=== PATIENT | male | born 1980 | race American Indian/Alaskan Native ===

== ENCOUNTER 2021-09-13 09:41 | Inpatient (IN) | payer SELFPAY ==
[2021-09-13 10:36] LABS: Basophils # (Auto) 0.1 K/mm3 (0.0-0.1); Basophils % (Auto) 1.2 % (0.0-1.8); Eosinophils % (Auto) 0.4 % (0.0-4.3); Hematocrit 32.6 % (35.5-45.6); Hemoglobin 10.7 gm/dl (11.8-15.2); Lymphocytes # (Auto) 1.4 K/mm3 (1.2-5.4); Lymphocytes % (Auto) 11.9 % (13.4-35.0); Mean Corpuscular HGB Conc 33 % (32-34); Mean Corpuscular Volume 93 fl (84-94); Monocytes # (Auto) 0.7 K/mm3 (0.0-0.8); Platelet Count 330 K/mm3 (140-440); Red Cell Distribution Width 17.7 % (13.2-15.2)
[2021-09-13 12:19] LABS: Calcium 10.2 mg/dL (8.4-10.2)
[2021-09-13] MEDS ORDERED: ONDANSETRON 4 MG/2 ML INJ IV ONE ×3 (15:09→22:21)
--- NOTE | 2021-09-13 15:38 | XRay Report ---
CHEST 1 VIEW 09/13/2021 3:24 PM INDICATION / CLINICAL INFORMATION: Weakness. COMPARISON: None available. FINDINGS: SUPPORT DEVICES: Right Vas-Cath tip overlies distal SVC HEART / MEDIASTINUM: No significant abnormality. LUNGS / PLEURA: No significant pulmonary or pleural abnormality. No pneumothorax. ADDITIONAL FINDINGS: No significant additional findings. IMPRESSION: 1. No acute findings. Signer Name: Dillon Gerardo MD Signed: 09/13/2021 3:34 PM Workstation Name: [id number]
[2021-09-13 16:08] LABS: INR 0.89 (0.87-1.13)
[2021-09-13 16:37] LABS: Chol/HDL Ratio 2.93 %
[2021-09-13] MEDS ORDERED: HYDROmorphone 1 MG/1 ML INJ IV ONE (16:47)
[2021-09-13] MEDS ORDERED: SODIUM CHLORIDE 0.9% 500 ML 500 ML IV ONE (16:47)
[2021-09-13] MEDS ORDERED: niCARdipine DRIP 40 MG/200 ML BAG IV ONE (17:25)
--- NOTE | 2021-09-13 17:39 | Cat Scan Report ---
CT ABDOMEN AND PELVIS WITH CONTRAST HISTORY: pain. COMPARISON: None. TECHNIQUE: CT images of the abdomen and pelvis were obtained following administration of intravenous contrast. All CT scans at this location are performed using CT dose reduction for ALARA by means of automated exposure control. CONTRAST: 100 ml of intravenous contrast administered. FINDINGS: Lungs/bones: Lung bases are clear Abdomen/pelvis: There is thickening of the esophagus with diffuse fluid in the disc. This. The liver , spleen, adrenal glands, pancreas and gallbladder appear normal. Moderate coronary artery calcificat ion. Calcifications are seen overlying bilateral kidneys majority appear vascular. The appendix appea rs normal. No evidence for obstruction is identified. Small inguinal nodes are seen. Atherosclerotic calcifications seen within the aorta with small periaortic nodes. Questionable areas of thickening wi thin the colon and rectum however there is incomplete distention and lack of oral contrast No hydronephrosis. IMPRESSION: 1. Questionable thickening and regions of the colon with possible thickening within the distal sigmoi d colon and rectum as well. Findings could be secondary to incomplete distention. Evaluation is limit ed without oral contrast. No significant inflammatory changes seen. Clinical correlation and follow-u p as indicated. 2. Marked thickening of the distal esophagus and GE junction. Follow-up upper GI examination and with GI recommended. 3. Calcifications in bilateral kidneys appear vascular. No hydronephrosis. There may be a few nonobst ructing renal calcifications as well. Signer Name: Dillon Gerardo MD Signed: 09/13/2021 5:35 PM Workstation Name: [id number]
--- NOTE | 2021-09-13 17:41 | Cat Scan Report ---
NONENHANCED CT SCAN OF THE HEAD: INDICATION / CLINICAL INFORMATION: 40 years Male; AMS. TECHNIQUE: Routine CT head without contrast. All CT scans at this location are performed using CT dos e reduction for ALARA by means of automated exposure control. COMPARISON: CT scan of the head from 07/10/2015 FINDINGS: BRAIN / INTRACRANIAL CONTENTS: No acute hemorrhage, mass effect, midline shift, hydrocephalus, or acu te, large territorial infarct. No chronic infarct or focal atrophy. Normal brain volume and ventricul ar/sulcal size for age. Lateral ventricles and third ventricle increased slightly since the last CT s can No significant white matter abnormality. CRANIOCERVICAL JUNCTION: No significant abnormality. ORBITS: No significant abnormality of visualized orbits. SINUSES / MASTOIDS: No significant abnormality of the visualized paranasal sinuses or mastoid air alberto ls. ADDITIONAL FINDINGS: None. IMPRESSION: No acute focal parenchymal lesion Signer Name: Nabor Sanderson MD Signed: 09/13/2021 5:36 PM Workstation Name: [id number]
--- NOTE | 2021-09-13 17:56 | History and Physical Report ---
History of Present Illness Chief complaint: Confused History of present illness: 40 YO Male with ESRD on HD(T,R,Sa) last dialyzed on , HTN, DM presents ED for evaluation. Patient is confused and lethargic the time my evaluation and is only able to provide minimal history. Patient reports "I feel sick". Juli ent states that he has experienced nausea, weakness over the past 3 days with persistent symptoms over the same timeframe. EMS was notified and upon arrival the patient was found to be in distress and subsequent transported to [facility] for further care and evaluation of the aforementioned symptoms. The patient was seen and evaluated in the emergency department. All lab and imaging studies reviewed. Patient found to have a blood pressure of 195/102 mmHg which is consistent with hypertensive emergency. Patient blood pressure nonresponsive to initial antihypertensive therapy. Patient separately placed on Cardene drip and admitted to [facility]. Patient also found to have systemic inflammatory response syndrome, hypertensive encephalopathy, fluid overload, end-stage renal disease in need of urgent dialysis. Nephrology team consulted in ED. Patient is confused and lethargic at time my evaluation but has a positive gag reflex and is able to protect his airway without difficulty. Prior mission on 03/25/2015 reviewed. All medication listed at time my evaluation has been reconciled. Past History Past Medical History: ESRD, hypertension Past Surgical History: Other (Dialysis access) Social history: single. denies: smoking, alcohol abuse Family history: hypertension Medications and Allergies Allergies Allergy/AdvReac Type Severity Reaction Status Date / Time No Known Allergies Allergy Verified 07/10/15 11:48 Home Medications Medication Instructions Recorded Confirmed Last Taken Type Pantoprazole [Protonix TAB] 40 mg PO DAILY #30 tablet 03/29/15 05/22/15 Unknown Rx Ondansetron [Zofran Odt] 4 mg PO Q6H #7 tab.rapdis 05/22/15 Unknown Rx traMADoL [Ultram] 50 mg PO Q6HR PRN #10 tablet 05/22/15 Unknown Rx Acetaminophen/Codeine [Tylenol #3] 1 tab PO Q6H PRN #15 tab 07/10/15 Unknown Rx Amoxicillin [Amoxicillin TAB] 875 mg PO BID #20 tablet 07/10/15 Unknown Rx Ibuprofen [Motrin 800 MG tab] 800 mg PO Q8HR PRN #30 tablet 07/10/15 Unknown Rx Ondansetron [Zofran Odt] 4 mg PO Q8HR #20 tab.rapdis 07/10/15 Unknown Rx atenoloL [Tenormin] 50 mg PO QDAY #30 tablet 07/10/15 Unknown Rx hydrALAZINE [Apresoline TAB] 50 mg PO Q8HR #90 tablet 07/10/15 Unknown Rx Furosemide [Lasix] 20 mg PO QDAY PRN #30 tablet 11/09/15 Unknown Rx Hydralazine HCl [Apresoline TAB] 50 mg PO Q8HR #90 tab 11/09/15 Unknown Rx Insulin NPH/Regular [NovoLIN 70/30] 12 unit SUB-Q BIDDIAB #30 units 11/09/15 Unknown Rx atenoloL [Tenormin] 50 mg PO DAILY #30 tab 11/09/15 Unknown Rx Active Meds: Active Medications Nicardipine/Sodium Chloride (Cardene Drip 40 Mg/200 Ml) 40 mg in 200 mls @ 25 mls/hr IV ONCE ONE; Protocol Stop: 09/14/21 01:24 Review of Systems ROS unobtainable: due to mental status Exam - Constitutional Vitals: Temp Pulse Resp BP Pulse Ox 98.7 F 125 H 16 195/102 97 09/13/21 09:54 09/13/21 09:54 09/13/21 09:54 09/13/21 09:54 09/13/21 09:54 General appearance: Present: mild distress - EENT Eyes: Present: PERRL ENT: hearing intact, clear oral mucosa - Neck Neck: Present: supple, normal ROM - Respiratory Respiratory effort: normal Respiratory: bilateral: CTA - Cardiovascular Heart Sounds: Present: S1 & S2. Absent: rub, click - Extremities Extremities: pulses symmetrical, No edema Peripheral Pulses: within normal limits - Abdominal General gastrointestinal: Present: soft, non-tender, non-distended, normal bowel sounds Male genitourinary: Present: normal - Integumentary Integumentary: Present: clear, warm, dry - Musculoskeletal Musculoskeletal: generalized weakness - Psychiatric Psychiatric: no appropriate mood/affect, no intact judgment & insight, no memory intact - Neurologic Neurologic: CNII-XII intact, no focal deficits, moves all extremities, no gait normal HEART Score - HEART Score Troponin: Troponin T 0.038 ng/mL (0.00-0.029) H 09/13/21 15:35 Results - Labs CBC & Chem 7: 09/13/21 10:15 09/13/21 10:15 Labs: Abnormal lab results 09/13/21 09/13/21 09/13/21 Range/Units 10:15 10:15 15:35 WBC 12.1 H (4.5-11.0) K/mm3 RBC 3.50 L (3.65-5.03) M/mm3 Hgb 10.7 L (11.8-15.2) gm/dl Hct 32.6 L (35.5-45.6) % RDW 17.7 H (13.2-15.2) % Lymph % (Auto) 11.9 L (13.4-35.0) % Seg Neutrophils % 80.5 H (40.0-70.0) % Seg Neutrophils # 9.7 H (1.8-7.7) K/mm3 Chloride 94.9 L (98-107) mmol/L BUN 43 H (9-20) mg/dL Creatinine 11.8 H (0.8-1.3) mg/dL Glucose 332 H (75-100) mg/dL Troponin T 0.038 H (0.00-0.029) ng/mL Triglycerides 150 H (2-149) mg/dL HDL Cholesterol 66 H (40-59) mg/dL Assessment and Plan - Patient Problems (1) Hypertensive emergency Status: Acute Plan to address problem: Admitted to IMCU: Cardene drip, neuro check, blood pressure check per nursing care protocol: Monitor blood pressure every shift. (2) Hypertensive encephalopathy syndrome Status: Acute Plan to address problem: CT scan head, neuro check, seizure precaution, aspiration caution, fall precautions. (3) End stage renal disease Status: Acute Plan to address problem: Dialysis as per renal team, strict I's/O, monitor urine output every shift, monitor fluid balance, avoid nephrotoxic agents. Nephrology team consulted in ED. (4) SIRS (systemic inflammatory response syndrome) Status: Acute Plan to address problem: Chest x-ray, urinalysis ordered and pending at time of admission. IV antibiotic therapy, CBC, repeat CBC in AM. (5) Diabetes Status: Acute Plan to address problem: Accu-Chek, sliding scale insulin therapy, consistent carbohydrate diet when awake and alert only: Hypoglycemia protocol. (6) DVT prophylaxis Status: Acute Plan to address problem: SCD to bilateral lower extremities while in bed (7) Advance care planning Status: Acute Plan to address problem: Disease education done, care plan discussed, diagnoses discussed, prognosis discussed, patient is full code, +30 minutes. (8) Preventative health care Status: Acute Plan to address problem: Medication and renal diet compliance as outpatient, outpatient follow-up with primary care physician for all age and risk factor appropriate screening test, +30 minutes.
[2021-09-13] MEDS ORDERED: ALBUTEROL 2.5 MG/3 ML NEBU IH PRN (17:57)
[2021-09-13] MEDS ORDERED: HYDROmorphone 0.5 MG/0.5 ML INJ IV PRN (17:57)
[2021-09-13] MEDS ORDERED: oxyCODONE /ACETAMINOPHEN 5-325MG TAB PO PRN (17:57)
[2021-09-13] MEDS ORDERED: FUROSEMIDE 20 MG TAB PO PRN (17:59)
--- NOTE | 2021-09-13 17:59 | Emergency Department Report ---
ED General Adult HPI - General Chief complaint: Weakness Stated complaint: DAILYSIS NEEDED PUI?: No Time Seen by Provider: 09/13/21 15:06 Source: patient Mode of arrival: Ambulatory Limitations: No Limitations - History of Present Illness Initial comments: 40 years old male on dilaysis missed his dilaysis today because he was too sick, generlised abdominal pain with vomiting no chest pain -: Gradual, hour(s) Location: abdomen Radiation: non-radiation Severity scale (0 -10): 5 Quality: aching Consistency: constant Improves with: none - Related Data Previous Rx's Medication Instructions Recorded Last Taken Type Pantoprazole [Protonix TAB] 40 mg PO DAILY #30 tablet 03/29/15 Unknown Rx Ondansetron [Zofran Odt] 4 mg PO Q6H #7 tab.rapdis 05/22/15 Unknown Rx traMADoL [Ultram] 50 mg PO Q6HR PRN #10 tablet 05/22/15 Unknown Rx Acetaminophen/Codeine [Tylenol #3] 1 tab PO Q6H PRN #15 tab 07/10/15 Unknown Rx Amoxicillin [Amoxicillin TAB] 875 mg PO BID #20 tablet 07/10/15 Unknown Rx Ibuprofen [Motrin 800 MG tab] 800 mg PO Q8HR PRN #30 tablet 07/10/15 Unknown Rx Ondansetron [Zofran Odt] 4 mg PO Q8HR #20 tab.rapdis 07/10/15 Unknown Rx atenoloL [Tenormin] 50 mg PO QDAY #30 tablet 07/10/15 Unknown Rx hydrALAZINE [Apresoline TAB] 50 mg PO Q8HR #90 tablet 07/10/15 Unknown Rx Furosemide [Lasix] 20 mg PO QDAY PRN #30 tablet 11/09/15 Unknown Rx Hydralazine HCl [Apresoline TAB] 50 mg PO Q8HR #90 tab 11/09/15 Unknown Rx Insulin NPH/Regular [NovoLIN 70/30] 12 unit SUB-Q BIDDIAB #30 units 11/09/15 Unknown Rx atenoloL [Tenormin] 50 mg PO DAILY #30 tab 11/09/15 Unknown Rx Allergies Allergy/AdvReac Type Severity Reaction Status Date / Time No Known Allergies Allergy Verified 07/10/15 11:48 ED Review of Systems ROS: Stated complaint: DAILYSIS NEEDED Other details as noted in HPI Constitutional: denies: chills, fever Eyes: denies: eye pain, eye discharge, vision change ENT: denies: ear pain, throat pain Respiratory: denies: cough, shortness of breath, wheezing Cardiovascular: denies: chest pain, palpitations Endocrine: no symptoms reported Gastrointestinal: denies: abdominal pain, nausea, diarrhea Genitourinary: denies: urgency, dysuria Musculoskeletal: denies: back pain, joint swelling, arthralgia Skin: denies: rash, lesions Neurological: denies: headache, weakness, paresthesias Psychiatric: denies: anxiety, depression Hematological/Lymphatic: denies: easy bleeding, easy bruising ED Past Medical Hx - Past Medical History Hx Hypertension: Yes Hx Congestive Heart Failure: Yes Hx Diabetes: Yes Hx HIV: No - Social History Smoking Status: Never Smoker - Medications Home Medications: Home Medications Medication Instructions Recorded Confirmed Last Taken Type Pantoprazole [Protonix TAB] 40 mg PO DAILY #30 tablet 03/29/15 05/22/15 Unknown Rx Ondansetron [Zofran Odt] 4 mg PO Q6H #7 tab.rapdis 05/22/15 Unknown Rx traMADoL [Ultram] 50 mg PO Q6HR PRN #10 tablet 05/22/15 Unknown Rx Acetaminophen/Codeine [Tylenol #3] 1 tab PO Q6H PRN #15 tab 07/10/15 Unknown Rx Amoxicillin [Amoxicillin TAB] 875 mg PO BID #20 tablet 07/10/15 Unknown Rx Ibuprofen [Motrin 800 MG tab] 800 mg PO Q8HR PRN #30 tablet 07/10/15 Unknown Rx Ondansetron [Zofran Odt] 4 mg PO Q8HR #20 tab.rapdis 07/10/15 Unknown Rx atenoloL [Tenormin] 50 mg PO QDAY #30 tablet 07/10/15 Unknown Rx hydrALAZINE [Apresoline TAB] 50 mg PO Q8HR #90 tablet 07/10/15 Unknown Rx Furosemide [Lasix] 20 mg PO QDAY PRN #30 tablet 11/09/15 Unknown Rx Hydralazine HCl [Apresoline TAB] 50 mg PO Q8HR #90 tab 11/09/15 Unknown Rx Insulin NPH/Regular [NovoLIN 70/30] 12 unit SUB-Q BIDDIAB #30 units 11/09/15 Unknown Rx atenoloL [Tenormin] 50 mg PO DAILY #30 tab 11/09/15 Unknown Rx ED Physical Exam - General Limitations: No Limitations General appearance: alert, in distress - Head Head exam: Present: atraumatic, normocephalic - Eye Eye exam: Present: normal appearance - ENT ENT exam: Present: mucous membranes moist - Neck Neck exam: Present: normal inspection - Respiratory Respiratory exam: Present: rales. Absent: respiratory distress - Cardiovascular Cardiovascular Exam: Present: normal rhythm, tachycardia. Absent: systolic murmur, diastolic murmur, rubs, gallop - GI/Abdominal GI/Abdominal exam: Present: distended, tenderness, normal bowel sounds - Rectal Rectal exam: Present: deferred - Extremities Exam Extremities exam: Present: normal inspection - Back Exam Back exam: Present: normal inspection - Neurological Exam Neurological exam: Present: alert, oriented X3 - Psychiatric Psychiatric exam: Present: normal affect, normal mood - Skin Skin exam: Present: warm, dry, intact, normal color. Absent: rash ED Course Vital Signs 09/13/21 09:54 Temperature 98.7 F Pulse Rate 125 H Respiratory 16 Rate Blood Pressure 195/102 [Left] O2 Sat by Pulse 97 Oximetry ED Medical Decision Making - Lab Data Result diagrams: 09/13/21 10:15 09/13/21 10:15 - EKG Data -: EKG Interpreted by Me EKG shows normal: sinus rhythm Rate: tachycardia - EKG Data Interpretation: nonspecific ST-T wave karel - Radiology Data Radiology results: report reviewed, image reviewed - Medical Decision Making work up shwoed crf, CT head and abdomen showed gastirtis and colitis, will admit for HTN urgency started on nicard drip Critical care attestation.: If time is entered above; I have spent that time in minutes in the direct care of this critically ill patient, excluding procedure time. ED Disposition Clinical Impression: Hypertensive urgency, Hyperglycemia, ESRD (end stage renal disease) on dialysis Abdominal pain Qualifiers: Abdominal location: generalized Qualified Code(s): R10.84 - Generalized abdominal pain Disposition: ADMITTED INPATIENT Is pt being admited?: Yes Does the pt Need Aspirin: No Condition: Fair
[2021-09-13] MEDS ORDERED: niCARdipine 50 MG in SODIUM CHLORIDE 0.9% 250ML 230 ML IV SCH (18:00)
[2021-09-13 18:26] LABS: C-Reactive Protein 0.3 mg/dL (0.00-1.30)
[2021-09-13] MEDS ORDERED: DEXTROSE 50% IN WATER (25GM) 50 ML SYRINGE IV PRN (18:34)
[2021-09-13] MEDS ORDERED: ACETAMINOPHEN 325 MG TAB PO PRN (19:00)
[2021-09-13] MEDS: hydrALAZINE 25 MG TAB PO SCH (21:40)
[2021-09-14] MEDS ORDERED: ONDANSETRON 4 MG/2 ML INJ IV PRN (01:13)
[2021-09-14] MEDS ORDERED: MORPHINE 2 MG/1 ML INJ IV PRN (01:14)
[2021-09-14 01:25] LABS: Amphetamine Screen,Urine PRESUMPTIVE NEGATIVE; Benzodiazepines Screen,Urine PRESUMPTIVE NEGATIVE; Cannabinoid Screen,Urine PRESUMPTIVE POSITIVE; Cocaine Screen,Urine PRESUMPTIVE NEGATIVE; Methadone Screen,Urine PRESUMPTIVE NEGATIVE; Opiate Screen,Urine PRESUMPTIVE NEGATIVE
[2021-09-14] MEDS ORDERED: METOCLOPRAMIDE 10 MG/2 ML INJ IV ONE (01:42)
[2021-09-14] MEDS ORDERED: METOPROLOL TARTRATE 5 MG/5 ML INJ IV ONE (01:59)
[2021-09-14] MEDS ORDERED: HYDROmorphone 1 MG/1 ML INJ IV PRN (02:00)
[2021-09-14] MEDS: INSULIN LISPRO 100 UNIT/ML SUB-Q SCH ×5 (04:11→23:11)
[2021-09-14] MEDS: hydrALAZINE 25 MG TAB PO SCH ×3 (06:49→21:12)
[2021-09-14 07:36] LABS: Calcium 10.7 mg/dL (8.4-10.2)
[2021-09-14] MEDS ORDERED: atenoloL 50 MG TAB PO SCH (10:00)
[2021-09-14] MEDS: atenoloL 25 MG TAB PO SCH (10:33)
[2021-09-14] MEDS: PANTOPRAZOLE 40 MG TAB PO SCH (10:33)
--- NOTE | 2021-09-14 11:11 | Consultation ---
History of Present Illness - Reason for Consult Consult date: 09/14/21 end stage renal disease - History of Present Illness The patient is 40 YO male with history notable for HTN, DM, Anemia and ESRD on HD(TTS) who presented to [facility] ED 09/13/21 with c/o not feeling well, nausea and weakness. Apparently patient was confused and lethargic on presentation. Currently he denies any symptoms. Initial BP was over 200/120. Patient was placed on Cardene drip and admitted to [facility]. Patient also found to have systemic inflammatory response syndrome and hypertensive encephalopathy. Labs and imaging reviewed. Nephrology consulted for ESRD management. Past History Past Medical History: diabetes, dialysis, ESRD, hypertension Past Surgical History: Other (Dialysis access) Social history: single. denies: smoking, alcohol abuse Family history: hypertension Medications and Allergies Allergies Allergy/AdvReac Type Severity Reaction Status Date / Time No Known Allergies Allergy Verified 09/14/21 03:47 Home Medications Medication Instructions Recorded Confirmed Last Taken Type Pantoprazole [Protonix TAB] 40 mg PO DAILY #30 tablet 03/29/15 05/22/15 Unknown Rx Ondansetron [Zofran Odt] 4 mg PO Q6H #7 tab.rapdis 05/22/15 Unknown Rx traMADoL [Ultram] 50 mg PO Q6HR PRN #10 tablet 05/22/15 Unknown Rx Acetaminophen/Codeine [Tylenol #3] 1 tab PO Q6H PRN #15 tab 07/10/15 Unknown Rx Amoxicillin [Amoxicillin TAB] 875 mg PO BID #20 tablet 07/10/15 Unknown Rx Ibuprofen [Motrin 800 MG tab] 800 mg PO Q8HR PRN #30 tablet 07/10/15 Unknown Rx Ondansetron [Zofran Odt] 4 mg PO Q8HR #20 tab.rapdis 07/10/15 Unknown Rx atenoloL [Tenormin] 50 mg PO QDAY #30 tablet 07/10/15 Unknown Rx hydrALAZINE [Apresoline TAB] 50 mg PO Q8HR #90 tablet 07/10/15 Unknown Rx Furosemide [Lasix] 20 mg PO QDAY PRN #30 tablet 11/09/15 Unknown Rx Hydralazine HCl [Apresoline TAB] 50 mg PO Q8HR #90 tab 11/09/15 Unknown Rx Insulin NPH/Regular [NovoLIN 70/30] 12 unit SUB-Q BIDDIAB #30 units 11/09/15 Unknown Rx atenoloL [Tenormin] 50 mg PO DAILY #30 tab 11/09/15 Unknown Rx Active Meds: Active Medications Acetaminophen (Acetaminophen 325 Mg Tab) 650 mg PO Q6H PRN PRN Reason: Pain MILD(1-3)/Fever >100.5/CARDENAS Albuterol (Albuterol 2.5 Mg/3 Ml Nebu) 2.5 mg IH Q3HRT PRN PRN Reason: Shortness Of Breath Atenolol (Atenolol 25 Mg Tab) 50 mg PO QDAY RENY Last Admin: 09/14/21 10:33 Dose: 50 mg Dextrose (Dextrose 50% In Water (25gm) 50 Ml Syringe) 50 ml IV Q30MIN PRN; Protocol PRN Reason: Hypoglycemia Furosemide (Furosemide 20 Mg Tab) 20 mg PO QDAY PRN PRN Reason: Edema Hydralazine HCl (Hydralazine 25 Mg Tab) 50 mg PO Q8HR RENY Last Admin: 09/14/21 06:49 Dose: 50 mg Hydromorphone HCl (Hydromorphone 0.5 Mg/0.5 Ml Inj) 0.5 mg IV Q13H PRN PRN Reason: Pain , Severe (7-10) Last Admin: 09/13/21 22:51 Dose: 0.5 mg Hydromorphone HCl (Hydromorphone 1 Mg/1 Ml Inj) 1 mg IV Q6HR PRN PRN Reason: Pain , Severe (7-10) Last Admin: 09/14/21 02:10 Dose: 1 mg Levofloxacin/Dextrose (Levaquin 500mg/100ml) 500 mg in 100 mls @ 100 mls/hr IV Q48H RENY; Protocol Last Admin: 09/13/21 21:11 Dose: 100 mls/hr Insulin Human Lispro (Insulin Lispro 100 Unit/Ml) 0 unit SUB-Q Q6HR RENY; Protocol Last Admin: 09/14/21 06:53 Dose: Not Given Morphine Sulfate (Morphine 2 Mg/1 Ml Inj) 2 mg IV Q6H PRN PRN Reason: Pain, Moderate (4-6) Last Admin: 09/14/21 01:31 Dose: 2 mg Ondansetron HCl (Ondansetron 4 Mg/2 Ml Inj) 4 mg IV Q4H PRN PRN Reason: Nausea And Vomiting Last Admin: 09/14/21 01:32 Dose: 4 mg Oxycodone/Acetaminophen (Oxycodone /Acetaminophen 5-325mg Tab) 1 tab PO Q6H PRN PRN Reason: Pain, Moderate (4-6) Pantoprazole Sodium (Pantoprazole 40 Mg Tab) 40 mg PO DAILY [facility] Last Admin: 09/14/21 10:33 Dose: 40 mg Sodium Chloride (Sodium Chloride 0.9% 10 Ml Flush Syringe) 10 ml IV BID [facility] Last Admin: 09/14/21 10:34 Dose: 10 ml Sodium Chloride (Sodium Chloride 0.9% 10 Ml Flush Syringe) 10 ml IV PRN PRN PRN Reason: LINE FLUSH Review of Systems All systems: negative Exam - Vital Signs Vital signs: Vital Signs Temp Pulse Resp BP Pulse Ox 98.7 F 125 H 16 195/102 97 09/13/21 09:54 09/13/21 09:54 09/13/21 09:54 09/13/21 09:54 09/13/21 09:54 Results - Lab Results 09/13/21 10:15 09/14/21 06:30 Most recent lab results Calcium 10.7 mg/dL (8.4-10.2) H 09/14/21 06:30 Assessment and Plan 1. ESRD: Patient i son maintenance hemodialysis, TTS schedule. Last outpatient HD 09/11/21. Meds dosage based on GFR. Hemodialysis: 2. FEN: Volume control with HD. Monitor lytes and volume status. 3. Hypertensive Emergency, POA: ? medication non-compliance. Was on Cardene gtt. BP is improving. Adjust meds as needed. Monitor. 4. Acute metabolic encephalopathy, POA: CT head negative. Improved. 5. Type 2 Diabetes Mellitus with Hyperglycemia: BG check and SSI ACHS. 6. Normocytic anemia, POA: Likely 2/2 ESRD. Trend. Subjective: Patient was seen and examined at the bedside. Examination: General appearance: alert, well-developed, appears stated age, no distress HEENT: atraumatic, [place] Neck: trachea midline Respiratory: ctab Heart: S1S2, regular, no murmur Abdomen: soft, bowel sounds heard, NT Integumentary: no rash noted Neurologic: AO, able to move extremities Ext: no edema Hemodialysis access: R IJ tunnel catheter
[2021-09-14] MEDS ORDERED: HEPARIN 10,000 UNITS/10 ML VIAL IV PRN (11:12)
[2021-09-14] MEDS ORDERED: SODIUM CHLORIDE 0.9% 100 ML IV PRN (11:12)
--- NOTE | 2021-09-14 12:58 | Progress Note ---
Assessment and Plan Assessment and Plan - Patient Problems (1) Hypertensive emergency Status: Acute Plan to address problem: Blood pressure better controlled Cardene drip discontinued Valsartan 160 mg twice a day added (2) Hypertensive encephalopathy syndrome Status: Acute Plan to address problem: Sensorium is improved (3) End stage renal disease Status: Acute Plan to address problem: Dialysis as per renal team, strict I's/O, monitor urine output every shift, monitor fluid balance, avoid nephrotoxic agents. Nephrology team consulted in ED. (4) SIRS (systemic inflammatory response syndrome) Status: Acute Plan to address problem: Chest x-ray, urinalysis ordered and pending at time of admission. IV antibiotic therapy, CBC, repeat CBC in AM. (5) Diabetes Status: Acute Plan to address problem: Accu-Chek, sliding scale insulin therapy, consistent carbohydrate diet when awake and alert only: Hypoglycemia protocol. (6) DVT prophylaxis Status: Acute Plan to address problem: SCD to bilateral lower extremities while in bed (7) Advance care planning Status: Acute Plan to address problem: Disease education done, care plan discussed, diagnoses discussed, prognosis discussed, patient is full code, +30 minutes. (8) Preventative health care Status: Acute Plan to address problem: Medication and renal diet compliance as outpatient, outpatient follow-up with primary care physician for all age and risk factor appropriate screening test, +30 minutes. Critical care statement The high probability OF a clinically significant sudden or life-threatening deterioration of the cardiorespiratory system and endocrine system required my full and direct attention, intervention and postoperative management. The aggregate critical care time was 40 minutes. The time is in addition to time spent performing reported procedures but includes the followin: Data review and interpretation 2: Patient assessment and monitoring of vital signs 3: Documentation 4:: Medication orders and management Subjective Date of service: 09/14/21 Principal diagnosis: Hypertensive emergency, end-stage renal disease on dialysis Interval history: 40 YO Male with ESRD on HD(T,R,Sa) last dialyzed on , HTN, DM presents ED for evaluation. Patient is confused and lethargic the time my evaluation and is only able to provide minimal history. Patient reports "I feel sick". Patient states that he has experienced nausea, weakness over the past 3 days with persistent symptoms over the same timeframe. EMS was notified and upon arrival the patient was found to be in distress and subsequent transported to [facility] for further care and evaluation of the aforementioned symptoms. The patient was seen and evaluated in the emergency department. All lab and imaging studies reviewed. Patient found to have a blood pressure of 195/102 mmHg which is consistent with hypertensive emergency. Patient blood pressure nonresponsive to initial antihypertensive therapy. Patient separately placed on Cardene drip and admitted to [facility]. Patient also found to have systemic inflammatory response syndrome, hypertensive encephalopathy, fluid overload, end-stage renal disease in need of urgent dialysis. Nephrology team consulted in ED. Patient is confused and lethargic at time my evaluation but has a positive gag reflex and is able to protect his airway without difficulty. Prior mission on 03/25/2015 reviewed. All medication listed at time my evaluation has been reconciled. 09/14/2021 Blood pressure better controlled Cardene drip discontinued Objective - Constitutional Vitals: Vital Signs - 12hr 09/14/21 09/14/21 09/14/21 01:00 01:15 01:31 Temperature Pulse Rate 122 H 151 H Pulse Rate [ From Monitor] Respiratory 16 18 Rate Blood Pressure 138/89 187/101 Blood Pressure [Left] O2 Sat by Pulse 100 100 100 Oximetry 09/14/21 09/14/21 09/14/21 01:36 01:45 01:59 Temperature 97.6 F Pulse Rate 155 H 158 H 155 H Pulse Rate [ From Monitor] Respiratory 19 17 Rate Blood Pressure 187/97 Blood Pressure 174/86 [Left] O2 Sat by Pulse 94 99 Oximetry 09/14/21 09/14/21 09/14/21 02:01 02:15 02:31 Temperature Pulse Rate 135 H 109 H 107 H Pulse Rate [ From Monitor] Respiratory 0 L 16 13 Rate Blood Pressure 172/84 172/84 146/89 Blood Pressure [Left] O2 Sat by Pulse 96 99 100 Oximetry 09/14/21 09/14/21 09/14/21 02:45 03:01 03:45 Temperature Pulse Rate 108 H 108 H Pulse Rate [ From Monitor] Respiratory 12 16 12 Rate Blood Pressure 146/89 145/89 Blood Pressure [Left] O2 Sat by Pulse 100 100 Oximetry 09/14/21 09/14/21 09/14/21 03:47 04:00 04:30 Temperature 97.6 F Pulse Rate 122 H 100 H Pulse Rate [ From Monitor] Respiratory 14 7 L Rate Blood Pressure 155/95 Blood Pressure [Left] O2 Sat by Pulse Oximetry 09/14/21 09/14/21 09/14/21 04:31 04:45 05:00 Temperature Pulse Rate 111 H 98 H 97 H Pulse Rate [ 97 H From Monitor] Respiratory 14 21 Rate Blood Pressure 155/95 152/94 Blood Pressure [Left] O2 Sat by Pulse 100 100 Oximetry 09/14/21 09/14/21 09/14/21 05:31 06:00 06:31 Temperature Pulse Rate 97 H 100 H 112 H Pulse Rate [ From Monitor] Respiratory 14 12 14 Rate Blood Pressure 152/94 155/102 155/102 Blood Pressure [Left] O2 Sat by Pulse 100 100 100 Oximetry 09/14/21 09/14/21 09/14/21 06:49 07:00 07:15 Temperature 97.9 F Pulse Rate 107 H 98 H Pulse Rate [ From Monitor] Respiratory 10 L Rate Blood Pressure 155/102 175/106 Blood Pressure [Left] O2 Sat by Pulse 100 Oximetry 09/14/21 09/14/21 09/14/21 07:31 08:00 08:31 Temperature Pulse Rate 101 H 94 H 92 H Pulse Rate [ From Monitor] Respiratory 13 20 11 L Rate Blood Pressure 151/96 151/96 Blood Pressure [Left] O2 Sat by Pulse 100 100 100 Oximetry 09/14/21 09/14/21 09/14/21 09:00 09:31 10:00 Temperature Pulse Rate 92 H 99 H 97 H Pulse Rate [ From Monitor] Respiratory 12 11 L 15 Rate Blood Pressure 152/94 152/94 151/89 Blood Pressure [Left] O2 Sat by Pulse 100 100 100 Oximetry 09/14/21 09/14/21 09/14/21 10:31 10:33 11:00 Temperature Pulse Rate 100 H 104 H 95 H Pulse Rate [ From Monitor] Respiratory 14 16 Rate Blood Pressure 151/89 151/89 148/94 Blood Pressure [Left] O2 Sat by Pulse 100 100 Oximetry 09/14/21 12:26 Temperature 97.8 F Pulse Rate Pulse Rate [ From Monitor] Respiratory Rate Blood Pressure Blood Pressure [Left] O2 Sat by Pulse Oximetry General appearance: Present: no acute distress, well-nourished - EENT Eyes: PERRL, EOM intact ENT: hearing intact, clear oral mucosa Ears: bilateral: normal - Neck Neck: supple, normal ROM - Respiratory Respiratory effort: normal Respiratory: bilateral: CTA - Breasts Breasts: normal - Cardiovascular Heart rate: 78 Rhythm: regular Heart Sounds: Present: S1 & S2. Absent: gallop, rub Extremities: pulses intact, No edema, normal color, Full ROM - Gastrointestinal General gastrointestinal: Present: soft, non-tender, non-distended, normal bowel sounds - Genitourinary Male genitourinary: normal - Integumentary Integumentary: clear, warm, dry - Musculoskeletal Musculoskeletal: 1, strength equal bilaterally - Neurologic Neurologic: moves all extremities - Psychiatric Psychiatric: memory intact, appropriate mood/affect, intact judgment & insight - Labs CBC & Chem 7: 09/13/21 10:15 09/14/21 06:30 Labs: Abnormal lab results 09/13/21 09/14/21 09/14/21 Range/Units 15:35 04:10 06:30 Chloride 94.1 L (98-107) mmol/L Carbon Dioxide 31 H (22-30) mmol/L BUN 54 H (9-20) mg/dL Creatinine 12.9 H (0.8-1.3) mg/dL Glucose 129 H (75-100) mg/dL POC Glucose 173 H (70-105) mg/dL Calcium 10.7 H (8.4-10.2) mg/dL Troponin T 0.038 H (0.00-0.029) ng/mL Triglycerides 150 H (2-149) mg/dL HDL Cholesterol 66 H (40-59) mg/dL 09/14/21 09/14/21 Range/Units 06:52 11:51 Chloride (98-107) mmol/L Carbon Dioxide (22-30) mmol/L BUN (9-20) mg/dL Creatinine (0.8-1.3) mg/dL Glucose (75-100) mg/dL POC Glucose 123 H 158 H (70-105) mg/dL Calcium (8.4-10.2) mg/dL Troponin T (0.00-0.029) ng/mL Triglycerides (2-149) mg/dL HDL Cholesterol (40-59) mg/dL HEART Score - HEART Score Troponin: Troponin T 0.038 ng/mL (0.00-0.029) H 09/13/21 15:35
[2021-09-14] MEDS: VALSARTAN 160MG TAB PO SCH ×2 (13:13→21:12)
--- NOTE | 2021-09-14 19:43 | Electrocardiograph Report ---
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
--- NOTE | 2021-09-14 19:52 | Electrocardiograph Report ---
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
[2021-09-15] MEDS: hydrALAZINE 25 MG TAB PO SCH ×2 (05:51→14:00)
--- NOTE | 2021-09-15 06:50 | Event Note ---
Date: 09/14/21 Patient stable on multiple antihypertensives End-stage renal disease on hemodialysis Patient admitted for hypertensive emergency Possible discharge tomorrow Blood pressure was still high because of which valsartan was added
[2021-09-15] MEDS: VALSARTAN 160MG TAB PO SCH (09:17)
[2021-09-15] MEDS: PANTOPRAZOLE 40 MG TAB PO SCH (09:18)
[2021-09-15] MEDS: atenoloL 25 MG TAB PO SCH (09:18)
[2021-09-15] MEDS: INSULIN LISPRO 100 UNIT/ML SUB-Q SCH ×3 (09:30→18:08)
--- NOTE | 2021-09-15 10:16 | Discharge Summary ---
Providers - Providers Date of Admission: 09/13/21 17:57 Date of discharge: 09/15/21 Attending physician: FAISAL HOUSER 09/13/21 18:23 Consult to Physician [CONS] Stat Comment: Consulting Provider: CAPRI CARMONA Physician Instructions: Reason For Exam: esrd Primary care physician: LAWYER PROBATE Hospitalization Reason for admission: AMS Condition: Fair Hospital course: The patient is 40 YO male with history notable for HTN, DM, Anemia and ESRD on HD(TTS) who presented to [facility] ED 09/13/21 with c/o not feeling well, nausea and weakness. Apparently patient was confused and lethargic on presentation. Initial BP was over 200/120. Patient was placed on Cardene drip and admitted to [facility]. Patient also found to have systemic inflammatory response syndrome and hypertensive encephalopathy. Labs and imaging reviewed. Nephrology consulted for ESRD management. Cardene drip was later discontinued throughout hospitalization and patient was started on valsartan 160 mg twice daily. Patient's blood pressure remained elevated and further adjustment needed for antihypertensive medication. However, patient stated that he was not willing to stay in the hospital. I expressed the risk of leaving the hospital including stroke and given the elevated blood pressure. Patient stated that he wanted to leave AMA. Dedicated discharge time 35 minutes Disposition: LEFT AGAINST MEDICAL ADVICE Final Discharge Diagnosis (Prints w/discharge instructions): Hypertensive emergency, hypertensive encephalopathy, ESRD, SIRS, diabetes mellitus type 2 Core Measure Documentation - Palliative Care Palliative Care/ Comfort Measures: Not Applicable - Core Measures Any of the following diagnoses?: none Exam - Constitutional Vitals: Temp Pulse Resp BP Pulse Ox 98.4 F 92 H 20 147/95 97 09/15/21 09:04 09/15/21 09:18 09/15/21 09:04 09/15/21 09:17 09/15/21 09:04 General appearance: Present: no acute distress, well-nourished - EENT Eyes: Present: PERRL ENT: hearing intact, clear oral mucosa - Neck Neck: Present: supple, normal ROM - Respiratory Respiratory effort: normal Respiratory: bilateral: CTA - Cardiovascular Heart Sounds: Present: S1 & S2. Absent: rub, click - Extremities Extremities: pulses symmetrical, No edema Peripheral Pulses: within normal limits - Abdominal General gastrointestinal: Present: soft, non-tender, non-distended, normal bowel sounds Male genitourinary: Present: normal - Integumentary Integumentary: Present: clear, warm, dry - Musculoskeletal Musculoskeletal: gait normal, strength equal bilaterally - Psychiatric Psychiatric: appropriate mood/affect, intact judgment & insight - Neurologic Neurologic: CNII-XII intact, moves all extremities Plan Follow up with: PRIMARY CARE, [Primary Care Provider] - 7 Days
--- NOTE | 2021-09-15 11:21 | Progress Note ---
Assessment and Plan ESRD - HD today HTN - Improved control. Encouraged to comply with BP meds Lytes - Low Bicarb bath on HD & f/u Alkalosis Subjective Date of service: 09/15/21 Principal diagnosis: Hypertensive emergency, end-stage renal disease on dialysis Interval history: Awake & responsive Objective - Vital Signs Vital signs: Vital Signs - 12hr 09/15/21 09/15/21 09/15/21 01:00 05:00 05:47 Temperature 99.2 F Pulse Rate 86 Respiratory 17 Rate Blood Pressure Blood Pressure 160/99 [Left] O2 Sat by Pulse 97 97 97 Oximetry 09/15/21 09/15/21 09/15/21 05:51 09:04 09:17 Temperature 98.4 F Pulse Rate 86 92 H 92 H Respiratory 20 Rate Blood Pressure 160/99 147/95 147/95 Blood Pressure [Left] O2 Sat by Pulse 97 Oximetry 09/15/21 09:18 Temperature Pulse Rate 92 H Respiratory Rate Blood Pressure Blood Pressure [Left] O2 Sat by Pulse Oximetry - General Appearance General appearance: other (Awake & alert) EENT: PERRL, hearing intact Neck: no JVD Respiratory: Present: Clear to Ascultation Cardiology: regular, S1S2 Gastrointestinal: tenderness, other (Soft) Integumentary: warm and dry Neurologic: alert and oriented x3 - Lab 09/13/21 10:15 09/14/21 06:30 Most recent lab results Calcium 10.7 mg/dL (8.4-10.2) H 09/14/21 06:30 Medications & Allergies - Medications Allergies/Adverse Reactions: Allergies No Known Allergies Allergy (Verified 09/14/21 03:47) Home Medications: Home Medications Medication Instructions Recorded Confirmed Last Taken Type Pantoprazole [Protonix TAB] 40 mg PO DAILY #30 tablet 03/29/15 05/22/15 Unknown Rx Ondansetron [Zofran Odt] 4 mg PO Q6H #7 tab.rapdis 05/22/15 Unknown Rx traMADoL [Ultram] 50 mg PO Q6HR PRN #10 tablet 05/22/15 Unknown Rx Acetaminophen/Codeine [Tylenol #3] 1 tab PO Q6H PRN #15 tab 07/10/15 Unknown Rx Amoxicillin [Amoxicillin TAB] 875 mg PO BID #20 tablet 07/10/15 Unknown Rx Ibuprofen [Motrin 800 MG tab] 800 mg PO Q8HR PRN #30 tablet 07/10/15 Unknown Rx Ondansetron [Zofran Odt] 4 mg PO Q8HR #20 tab.rapdis 07/10/15 Unknown Rx atenoloL [Tenormin] 50 mg PO QDAY #30 tablet 07/10/15 Unknown Rx hydrALAZINE [Apresoline TAB] 50 mg PO Q8HR #90 tablet 07/10/15 Unknown Rx Furosemide [Lasix] 20 mg PO QDAY PRN #30 tablet 11/09/15 Unknown Rx Hydralazine HCl [Apresoline TAB] 50 mg PO Q8HR #90 tab 11/09/15 Unknown Rx Insulin NPH/Regular [NovoLIN 70/30] 12 unit SUB-Q BIDDIAB #30 units 11/09/15 Unknown Rx atenoloL [Tenormin] 50 mg PO DAILY #30 tab 11/09/15 Unknown Rx Active Medications: Generic Name Dose Route Start Last Admin Trade Name Freq PRN Reason Stop Dose Admin Acetaminophen 650 mg 09/13/21 19:00 Acetaminophen 325 Mg Tab PO Q6H PRN Pain MILD(1-3)/Fever >100.5/CARDENAS Albuterol 2.5 mg 09/13/21 17:57 Albuterol 2.5 Mg/3 Ml Nebu IH Q3HRT PRN Shortness Of Breath Atenolol 50 mg 09/14/21 10:00 09/15/21 09:18 Atenolol 25 Mg Tab PO 50 mg QDAY RENY Administration Dextrose 50 ml 09/13/21 18:34 Dextrose 50% In Water (25gm) 50 Ml Syringe IV Q30MIN PRN Hypoglycemia Protocol Furosemide 20 mg 09/13/21 17:59 Furosemide 20 Mg Tab PO QDAY PRN Edema Heparin Sodium (Porcine) 3,000 unit 09/14/21 11:12 Heparin 10,000 Units/10 Ml Vial IV KARLY PRN hemodialysis Hydralazine HCl 50 mg 09/13/21 22:00 09/15/21 05:51 Hydralazine 25 Mg Tab PO 50 mg Q8HR RENY Administration Hydromorphone HCl 0.5 mg 09/13/21 17:57 09/13/21 22:51 Hydromorphone 0.5 Mg/0.5 Ml Inj IV 0.5 mg Q13H PRN Administration Pain , Severe (7-10) Sodium Chloride 100 mls @ 999 mls/hr 09/14/21 11:12 Nacl 0.9% IV KARLY PRN Hypotension Insulin Human Lispro 0 unit 09/14/21 16:30 09/15/21 09:30 Insulin Lispro 100 Unit/Ml SUB-Q 2 unit ACHS RENY Administration Protocol Levofloxacin 500 mg 09/15/21 18:00 Levofloxacin 500 Mg Tab PO 09/19/21 18:59 Q48H RENY Ondansetron HCl 4 mg 09/14/21 01:13 09/14/21 01:32 Ondansetron 4 Mg/2 Ml Inj IV 4 mg Q4H PRN Administration Nausea And Vomiting Oxycodone/Acetaminophen 1 tab 09/13/21 17:57 Oxycodone /Acetaminophen 5-325mg Tab PO Q6H PRN Pain, Moderate (4-6) Pantoprazole Sodium 40 mg 09/14/21 10:00 09/15/21 09:18 Pantoprazole 40 Mg Tab PO 40 mg DAILY RENY Administration Sodium Chloride 10 ml 09/13/21 22:00 09/15/21 09:18 Sodium Chloride 0.9% 10 Ml Flush Syringe IV 10 ml BID RENY Administration Sodium Chloride 10 ml 09/13/21 17:57 Sodium Chloride 0.9% 10 Ml Flush Syringe IV PRN PRN LINE FLUSH Valsartan 160 mg 09/14/21 13:00 09/15/21 09:17 Valsartan 160mg Tab PO 160 mg BID RENY Administration
[2021-09-15 15:15] LABS: Hepatitis B Surface Antigen Non-Reactive (Negative); Hepatitis C Virus Antibody Non-Reactive (NonReactive)
[2021-09-15] MEDS ORDERED: levoFLOXacin 500 MG TAB PO SCH (18:00)
[2021-09-15 18:17] VITALS: BP 143/86
== END 2021-09-15 18:33 | disposition left against medical advice (07) | DRG 70 ==
LOC: ED 09:41 → IMCU 17:57 → 3A 09-14 18:43
PROVIDERS: ADMIT Internal Medicine; ATTEND Hospitalist
PROC: 5A1D70Z Performance of Urinary Filtration, Intermittent, Less than 6 Hours Per Day (ICD-10-PCS; principal; 2021-09-15)
DX: G93.41 Metabolic encephalopathy (principal); N18.6 End stage renal disease; I16.1 Hypertensive emergency; I67.4 Hypertensive encephalopathy; R65.10 Systemic inflammatory response syndrome (SIRS) of non-infectious origin without acute organ dysfunction; I13.2 Hypertensive heart and chronic kidney disease with heart failure and with stage 5 chronic kidney disease, or end stage renal disease; Z53.29 Procedure and treatment not carried out because of patient's decision for other reasons; I11.0 Hypertensive heart disease with heart failure; I50.9 Heart failure, unspecified; E11.22 Type 2 diabetes mellitus with diabetic chronic kidney disease; D64.9 Anemia, unspecified; E11.65 Type 2 diabetes mellitus with hyperglycemia; Z99.2 Dependence on renal dialysis; Z82.49 Family history of ischemic heart disease and other diseases of the circulatory system; Z79.4 Long term (current) use of insulin
CPT/HCPCS: 36415; 70450; 71045; 74177; 80048; 80061; 80074; 80307; 82550; 82962; 84484; 85025; 85610; 86140; 87641; 93005; G0378; J3490; Q9967; J1170; J1815; J1956; J2270; J2405; J2765; J7040; J7050

== ENCOUNTER 2021-09-21 01:12 | Emergency (ER) | payer MEDICARE ==
[2021-09-21 02:59] LABS: Basophils % (Auto) 0.7 % (0.0-1.8); Eosinophils # (Auto) 0.2 K/mm3 (0.0-0.4); Hematocrit 26.3 % (35.5-45.6); Hemoglobin 8.7 gm/dl (11.8-15.2); Lymphocytes # (Auto) 1.8 K/mm3 (1.2-5.4); Lymphocytes % (Auto) 31.2 % (13.4-35.0); Mean Corpuscular HGB Conc 33 % (32-34); Mean Corpuscular Volume 94 fl (84-94); Monocytes # (Auto) 0.5 K/mm3 (0.0-0.8); Monocytes % (Auto) 9.1 % (0.0-7.3); Platelet Count 293 K/mm3 (140-440); Red Blood Count 2.81 M/mm3 (3.65-5.03); Red Cell Distribution Width 16.4 % (13.2-15.2)
[2021-09-21 03:16] LABS: Albumin 3.8 g/dL (3.9-5); Calcium 9.5 mg/dL (8.4-10.2)
--- NOTE | 2021-09-21 11:52 | Emergency Department Report ---
ED General Adult HPI - General Chief complaint: Pain General Stated complaint: NEED DIALYSIS Time Seen by Provider: 09/21/21 10:58 Source: patient Mode of arrival: Ambulatory Limitations: No Limitations - History of Present Illness Initial comments: 40-year-old male with diagnosis of end-stage renal disease the last 8 months who has been having hemodialysis on Wednesday, and Wednesday now presenting wanting dialysis. Last dialysis was last Wednesday about 6 days ago. Patient is visiting from [place] and has been in [facility] for last 1 week. Patient want this done on time because he has to go to [employer]. Patient denies any fever or chills. No other modifying or associated factors reported. Severity scale (0 -10): 7 - Related Data Previous Rx's Medication Instructions Recorded Last Taken Type Pantoprazole [Protonix TAB] 40 mg PO DAILY #30 tablet 03/29/15 Unknown Rx Ondansetron [Zofran Odt] 4 mg PO Q6H #7 tab.rapdis 05/22/15 Unknown Rx traMADoL [Ultram] 50 mg PO Q6HR PRN #10 tablet 05/22/15 Unknown Rx Acetaminophen/Codeine [Tylenol #3] 1 tab PO Q6H PRN #15 tab 07/10/15 Unknown Rx Amoxicillin [Amoxicillin TAB] 875 mg PO BID #20 tablet 07/10/15 Unknown Rx Ibuprofen [Motrin 800 MG tab] 800 mg PO Q8HR PRN #30 tablet 07/10/15 Unknown Rx Ondansetron [Zofran Odt] 4 mg PO Q8HR #20 tab.rapdis 07/10/15 Unknown Rx atenoloL [Tenormin] 50 mg PO QDAY #30 tablet 07/10/15 Unknown Rx hydrALAZINE [Apresoline TAB] 50 mg PO Q8HR #90 tablet 07/10/15 Unknown Rx Furosemide [Lasix] 20 mg PO QDAY PRN #30 tablet 11/09/15 Unknown Rx Hydralazine HCl [Apresoline TAB] 50 mg PO Q8HR #90 tab 11/09/15 Unknown Rx Insulin NPH/Regular [NovoLIN 70/30] 12 unit SUB-Q BIDDIAB #30 units 11/09/15 Unknown Rx atenoloL [Tenormin] 50 mg PO DAILY #30 tab 11/09/15 Unknown Rx Allergies Allergy/AdvReac Type Severity Reaction Status Date / Time No Known Allergies Allergy Verified 09/14/21 03:47 ED Review of Systems ROS: Stated complaint: NEED DIALYSIS Other details as noted in HPI Comment: All other systems reviewed and negative Musculoskeletal: myalgia ED Past Medical Hx - Past Medical History Previous Medical History?: Yes Hx Hypertension: Yes Hx Congestive Heart Failure: No Hx Diabetes: Yes Hx Renal Disease: Yes Hx HIV: No - Surgical History Past Surgical History?: Yes Additional Surgical History: dialysis port to R chest - Social History Smoking Status: Current Every Day Smoker Substance Use Type: None - Medications Home Medications: Home Medications Medication Instructions Recorded Confirmed Last Taken Type Pantoprazole [Protonix TAB] 40 mg PO DAILY #30 tablet 03/29/15 05/22/15 Unknown Rx Ondansetron [Zofran Odt] 4 mg PO Q6H #7 tab.rapdis 05/22/15 Unknown Rx traMADoL [Ultram] 50 mg PO Q6HR PRN #10 tablet 05/22/15 Unknown Rx Acetaminophen/Codeine [Tylenol #3] 1 tab PO Q6H PRN #15 tab 07/10/15 Unknown Rx Amoxicillin [Amoxicillin TAB] 875 mg PO BID #20 tablet 07/10/15 Unknown Rx Ibuprofen [Motrin 800 MG tab] 800 mg PO Q8HR PRN #30 tablet 07/10/15 Unknown Rx Ondansetron [Zofran Odt] 4 mg PO Q8HR #20 tab.rapdis 07/10/15 Unknown Rx atenoloL [Tenormin] 50 mg PO QDAY #30 tablet 07/10/15 Unknown Rx hydrALAZINE [Apresoline TAB] 50 mg PO Q8HR #90 tablet 07/10/15 Unknown Rx Furosemide [Lasix] 20 mg PO QDAY PRN #30 tablet 11/09/15 Unknown Rx Hydralazine HCl [Apresoline TAB] 50 mg PO Q8HR #90 tab 11/09/15 Unknown Rx Insulin NPH/Regular [NovoLIN 70/30] 12 unit SUB-Q BIDDIAB #30 units 11/09/15 Unknown Rx atenoloL [Tenormin] 50 mg PO DAILY #30 tab 11/09/15 Unknown Rx ED Physical Exam - General Limitations: No Limitations General appearance: alert, in no apparent distress - Head Head exam: Present: normal inspection - Eye Eye exam: Present: normal appearance Pupils: Present: normal accommodation - ENT ENT exam: Present: normal exam, normal orophraynx, mucous membranes moist - Neck Neck exam: Present: normal inspection, full ROM. Absent: tenderness - Respiratory Respiratory exam: Present: normal lung sounds bilaterally. Absent: respiratory distress, accessory muscle use - Cardiovascular Cardiovascular Exam: Present: regular rate, normal rhythm, normal heart sounds - GI/Abdominal GI/Abdominal exam: Present: soft, normal bowel sounds. Absent: tenderness - Extremities Exam Extremities exam: Present: normal inspection, normal capillary refill. Absent: tenderness - Back Exam Back exam: Absent: tenderness - Neurological Exam Neurological exam: Present: alert, oriented X3 - Psychiatric Psychiatric exam: Present: normal affect, normal mood - Skin Skin exam: Present: warm, intact ED Course Vital Signs 09/21/21 09/21/21 01:19 09:55 Temperature 98.8 F Pulse Rate 89 85 Respiratory 16 19 Rate Blood Pressure 124/72 Blood Pressure 189/101 [Left] O2 Sat by Pulse 100 100 Oximetry - Reevaluation(s) Reevaluation #1: 09/21/21 11:50 here with generalized muscle pain with ESRD currently on dialysis needing dialysis today -- will get routine labs CBC and CMP -- and UA to rule out any infectious process or electrolyte abnormality as a culprit--the meantime we will go ahead and call the hospitalist and nephrology and get patient started on dialysis. Reevaluation #2: 09/21/21 11:56 Noted with elevated BUN and creatinine at 63/13.8, and low H&H at 8.7/26.3 with normal potassium at 4.7 mg/dL--this is consistent with acute on chronic renal failure needing dialysis-- Nephrology will be consulted and the hospitalist outs for dialysis Reevaluation #3: 09/21/21 12:15 Pt reassured and asked to go home and return tomorrow or immediately if his symptoms worsen including a new symptom sob - Consultations Consultation #1: 09/21/21 12:14 Dr Frausto who suggested discharging patient home to return tomorrow for dialysis considering that his potassium is normal at 4.7 with elevated BUN.Cr 63/13.8-- ED Medical Decision Making - Lab Data Result diagrams: 09/21/21 02:21 09/21/21 02:21 Critical care attestation.: If time is entered above; I have spent that time in minutes in the direct care of this critically ill patient, excluding procedure time. ED Disposition Clinical Impression: ESRD (end stage renal disease) on dialysis Disposition: 01 HOME / SELF CARE / HOMELESS Is pt being admited?: No Does the pt Need Aspirin: No Condition: Stable Instructions: Dialysis Additional Instructions: Call or return to ED if symptoms worsen or you develop shortness of breath otherwise return tomorrow for dialysis Time of Disposition: 12:17
[2021-09-21 12:48] VITALS: BP 199/111
== END 2021-09-21 13:00 | disposition home or self-care (01) ==
LOC: ED 01:12
DX: I12.0 Hypertensive chronic kidney disease with stage 5 chronic kidney disease or end stage renal disease (principal); E11.22 Type 2 diabetes mellitus with diabetic chronic kidney disease; N18.6 End stage renal disease; Z99.2 Dependence on renal dialysis; Z98.890 Other specified postprocedural states; F17.290 Nicotine dependence, other tobacco product, uncomplicated
CPT/HCPCS: 36415; 80053; 85025; 99283